=== PATIENT | male | born 1965 | race Caucasian/White ===

== ENCOUNTER 2023-07-31 17:23 | Observation (INO) ==
[2023-07-31] MEDS: SODIUM CHLORIDE 0.9% 1,000 ML IV STA (18:25)
[2023-07-31 18:37] LABS: Appearance Urine Clear (Clear); Bilirubin Urine Negative (Negative); Blood Urine Negative (Negative); Color Urine Yellow; Glucose Urine UA Negative (Negative); Ketones Urine Negative (Negative); Leukocyte Esterase Urine Negative (Negative); Nitrite Urine Negative (Negative); Protein Urine Negative (Negative); Urobilinogen Urine Negative (Negative)
[2023-07-31 18:37] LABS: Basophils # (auto) 0.04 K/uL (0.00-0.20); Basophils % (auto) 0.6 %; Eosinophils # (auto) 0.31 K/uL (0.00-0.50); Eosinophils % (auto) 4.9 %; Hematocrit (blood only) 46.7 % (42.0-52.0); Immature Granulocytes # (auto) 0.04 K/uL (0.01-0.20); Immature Granulocytes % (auto) 0.6 %; Lymphocytes % (auto) 18.8 %; Mean Corpuscular Hemoglobin 29.6 pg (25.0-34.0); Mean Corpuscular Hgb Conc 34.3 g/dL (32.0-36.0); Mean Corpuscular Volume 86.5 fL (80.0-100.0); Monocytes # (auto) 0.73 K/uL (0.11-0.59); Monocytes % (auto) 11.4 %; Neutrophils # (auto) 4.06 K/uL (1.40-6.50); Neutrophils % (auto) 63.7 %; Platelet Count 259 K/uL (130-400); RDW Coefficient of Variation 13.4 % (11.5-14.5); RDW Standard Deviation 42.1 fL (36.4-46.3); White Blood Count 6.38 K/ul (4.8-10.8)
[2023-07-31 18:47] LABS: Albumin Globulin Ratio 1.2 (0.9-2); Albumin Level 4.4 gm/dl (3.4-5.0); BUN Creatinine Ratio 10.8 (10-20); Bilirubin,Total 0.9 mg/dl (0.2-1.0); Calcium 9.4 mg/dl (8.6-10.3); Creatinine Clr Calc Pharmacy 127.6 ml/min; Est GFR (African American) 117.8 ml/min; Est GFR (Non-African American) 101.7 ml/min; Globulin 3.8 gm/dl (2.5-4.0); Potassium 3.6 mmol/L (3.5-5.1); Total Protein 8.2 gm/dl (6.0-8.3)
--- NOTE | 2023-07-31 18:47 | Emergency Department Note ---
Impression & Plan Acute upper abdominal pain ED Provider Note NAME: ADRIAN CASTRO Jr AGE: 58 SEX: Male INFORMANT: Patient ED PROVIDER(S): Jaxon Key MD CHIEF COMPLAINT: Abdominal pain PLAN: Disposition: Admitted Outpatient prescription management: none Referral: None MEDICAL DECISION MAKING: Patient presented with acute abdominal pain going on this week. Pain was in the upper aspect. He had an IV established. Blood work and urinalysis ordered. CT imaging ordered to further elucidate the cause of his pain and tenderness. Patient declined analgesia. Patient underwent CT imaging and this was concerning for acute cholecystitis. Discussed case with on-call general surgery, Dr. Otto. She will admit the patient. Discussed initiation of IV Mefoxin she is in agreement. First dose ordered in the emergency department. Patient was informed. He is in agreement with the plan. Patient was admitted for further management. Care/management discussed with: none Level of care consideration(s): After review of the information above and other included data, I feel the patient requires escalation of care to admission Triage Nursing notes: reviewed and agree them. Vital Signs: reviewed and remarkable for no significant abnormalities Additional History obtained from: none Chronic Medical/Social Conditions affecting care: none Prior/ Outside/ External records reviewed: none Differential Diagnosis: constipation, diverticulitis, UTI, obstruction, mesenteric ischemia, aortic pathology, inflammatory bowel disease, renal colic, PUD, pancreatitis, biliary pathology, hernia, volvulus, Appendicitis, testicular torsion, infections, as well as other pathologies. Diagnostics, independently interpreted by me: ECG: none Cardiac Monitoring: none Medical decision rules: none Imaging studies: None. I refer you to the EMR for further details. HPI: 58 year old Male arrives for evaluation of upper abdominal pain. This started at the beginning of the week and is persisting with some days better than others. The patient also notes the following associated symptoms, feelings of constipation that he treated with laxatives. The patient has taken no other medication for relieving factors. Current pain is rated as 5/10. Patient states that he felt like he might have been constipated. He tried Dulcolax as well as MiraLAX after seeing his primary office 3 days ago. He has had some intermittent small bowel movements but they did not change his upper abdominal discomfort. Pain seem to migrate towards the right upper quadrant earlier this morning and persisted throughout the day. Patient notes a chronic cough for about 20 years but denies any other acute respiratory symptoms. Pt denies LOC, headache, fevers, chills, diaphoresis, visual changes, neck pain, chest pain, breathing difficulties, nausea, vomiting, back pain, melena, hematochezia, urinary symptoms, numbness, weakness, lymphadenopathy, rash, or other complaints. . PAST MEDICAL HISTORY: See Below, hyperlipidemia, chronic cough PAST SURGICAL HISTORY: See Below, SOCIAL HISTORY: See Below, employed HOME MEDICATIONS: See Below ALLERGIES: See Below VITALS: See Below PHYSICAL EXAMINATION: GENERAL: Awake, alert, well-appearing, in no distress HENT: Normocephalic, atraumatic. Oropharynx unremarkable. EYES: Normal conjunctiva. Sclera non-icteric. NECK: Inspection normal. Non-tender. Supple. No nuchal rigidity. FROM. No masses. RESPIRATORY: Clear to auscultation. No wheezes. No rales. Normal respiratory effort. CARDIAC: Normal rate. Normal rhythm. No murmurs. No rubs. Extremities warm and well perfused. Pulses equal. No JVD. GI: Soft, mild-distended. Epigastric and right upper quad tenderness to palpation. No rebound or guarding. No masses. RECTAL: Deferred. MUSCULOSKELETAL: Atraumatic. Chest examination reveals no tenderness. The back is symmetrical on inspection without obvious abnormality. There is no CVA tenderness to palpation. No joint edema. LOWER EXTREMITIES: Calves are equal size bilaterally and non-tender. No edema. No discoloration. NEURO: Normal sensorium. No sensory or motor deficits noted. SKIN: No rash or jaundice noted. PROCEDURES: none CRITICAL CARE: none OBSERVATION NOTE: none Past Med/Surg History Medical History (Updated 07/31/23 @ 18:46 by Jaxon Key MD) Multiple pulmonary nodules Asthma Hyperlipidemia Upper respiratory infection Social History Smoking Status: Never smoker Second Hand Exposure: No; Do You Dip or Chew Tobacco: No; Hx Alcohol Use: No Hx Substance Use: No Preferred Language: Czech Communication Ability: Effective Hearing Ability: Normal Frame Opener Required: No Beliefs That Will Affect Care: None marital status: Current Living Situation: Spouse Current Living Situation Comment: 1 daughter current occupational status: employed current occupation: Work [employer] at [employer] How many Children do You have: 5 Other Information That Helps Us Care for You: No Feels Safe at Home: Yes Safety Concerns: Feels Safe At This Time Childhood Exposure to Second-Hand Smoke: Yes Diet: regular caffeine: Yes Dental Care, Regularly: No Physical Activity Frequency: 3-4 Times per Week Physical Activity Frequency Comment: Walking Seatbelt Use: always Sunscreen Use: Yes Gender Identity: Male Assistive Devices: Glasses Allergies Allergies Allergy/AdvReac Type Severity Reaction Status Date / Time No Known Drug Allergies AdvReac 0 Verified 07/31/23 20:49 Home Meds Home Medications Medication Instructions Recorded Confirmed acetaminophen 500 mg tablet 1,000 mg PO Q6H PRN Pain 07/31/23 07/31/23 (Tylenol Extra Strength) lactulose 10 gram/15 mL oral 10 g PO DIRECTED 07/31/23 07/31/23 solution polyethylene glycol 3350 17 gram 17 g PO DIRECTED 07/31/23 07/31/23 oral powder packet (Miralax) Previous Rx's Medication Instructions Recorded benzonatate 100 mg capsule 100 mg PO TID PRN cough #20 caps 08/09/21 rosuvastatin 10 mg tablet 10 mg PO DAILY #90 tabs 06/29/23 fluticasone propionate 50 1 spray intranasal DAILY PRN nasal 07/20/23 mcg/actuation nasal congestion #16 grams spray,suspension (Flonase Allergy Relief) levocetirizine 5 mg tablet 5 mg PO DAILY PRN allergy symptoms 07/20/23 #30 tabs Results & Data (ED) Vital Signs Vital Signs - 24 hr 07/31/23 17:31 07/31/23 19:18 Temperature 36.5 C Temperature Source Temporal Artery Scan Pulse Rate 89 Pulse Rate [Apical] 75 Pulse Rhythm [Apical] Regular Pulse Strength [Apical] Normal Respiratory Rate 19 18 Respiratory Effort / Characteristics Non-Labored Spontaneous Respiratory Depth Normal Blood Pressure 165/108 H Blood Pressure [Right Arm] 152/74 H Blood Pressure Mean 127 Blood Pressure Mean [Right Arm] 100 Pulse Oximetry 96 99 Oxygen Delivery Method Room Air Room Air Sepsis Recent Fever Within 48 Hours No Sepsis New/Unexplained Change in Mental Status N/A Sepsis Action Taken by Nursing No Action Required Laboratory Data 07/31/23 18:15 07/31/23 18:15 Lab Results 07/31/23 07/31/23 Range/Units 18:15 18:26 WBC 6.38 (4.8-10.8) K/ul RBC 5.40 (4.70-6.10) M/uL Hgb 16.0 (14.0-18.0) g/dl Hct 46.7 (42.0-52.0) % MCV 86.5 (80.0-100.0) fL MCH 29.6 (25.0-34.0) pg MCHC 34.3 (32.0-36.0) g/dL RDW Std Deviation 42.1 (36.4-46.3) fL RDW Coeff of Jorge 13.4 (11.5-14.5) % Plt Count 259 (130-400) K/uL MPV 10.0 (9.4-12.4) fL Immature Gran % (Auto) 0.6 % Neut % (Auto) 63.7 % Lymph % (Auto) 18.8 % [place] % (Auto) 11.4 % Eos % (Auto) 4.9 % Baso % (Auto) 0.6 % Neut # (Auto) 4.06 (1.40-6.50) K/uL Lymph # (Auto) 1.20 (1.20-3.40) K/uL [place] # (Auto) 0.73 H (0.11-0.59) K/uL Eos # (Auto) 0.31 (0.00-0.50) K/uL Baso # (Auto) 0.04 (0.00-0.20) K/uL Immature Gran # (Auto) 0.04 (0.01-0.20) K/uL Sodium 137 (136-145) mmol/L Potassium 3.6 (3.5-5.1) mmol/L Chloride 102 (98-107) mmol/L Carbon Dioxide 26 (21-32) mmol/L Anion Gap 9 (3-11) BUN 8 (6-23) mg/dl Creatinine 0.74 (0.6-1.4) mg/dl Est Cr Clr Drug Dosing 127.6 ml/min Est GFR ( Amer) 117.8 ml/min Est GFR (Non-Af Amer) 101.7 ml/min BUN/Creatinine Ratio 10.8 (10-20) Glucose 105 H (70-99(Fasting)) mg/dl Calcium 9.4 (8.6-10.3) mg/dl Total Bilirubin 0.9 (0.2-1.0) mg/dl AST 30 (13-39) U/L ALT 39 (7-52) U/L Alkaline Phosphatase 90 (34-104) U/L Total Protein 8.2 (6.0-8.3) gm/dl Albumin 4.4 (3.4-5.0) gm/dl Globulin 3.8 (2.5-4.0) gm/dl Albumin/Globulin Ratio 1.2 (0.9-2) Lipase 25 (11-82) U/L TSH 1.199 (0.300-4.500) uIu/ml Urine Color Yellow Urine Appearance Clear (Clear) Urine pH 6.0 (4.5-7.5) Ur Specific [place] 1.010 (1.000-1.030) Urine Protein Negative (Negative) Urine Glucose (UA) Negative (Negative) Urine Ketones Negative (Negative) Urine Blood Negative (Negative) Urine Nitrite Negative (Negative) Urine Bilirubin Negative (Negative) Urine Urobilinogen Negative (Negative) Ur Leukocyte Esterase Negative (Negative) Administered Medications Lactated Ringer's (Lr) 1,000 mls @ 100 mls/hr IV .Q10H [facility]WAKU Stop: 08/30/23 21:35 Last Admin: 07/31/23 22:27 Dose: 100 mls/hr Documented By: JERONIMO Discontinued Medications Sodium Chloride (Nss) 1,000 mls @ 999 mls/hr IV .Q1H1M STA Stop: 07/31/23 19:01 Last Infusion: 07/31/23 19:52 Dose: Infused Documented By: [facility] Admin: 07/31/23 18:25 Dose: 999 mls/hr Documented By: NKIO Cefoxitin Sodium (Mefoxin) 2,000 mg in 60 mls @ 100 mls/hr IV NOW STA Stop: 07/31/23 20:37 Last Infusion: 07/31/23 21:05 Dose: Infused Documented By: [facility] Admin: 07/31/23 20:32 Dose: 100 mls/hr Documented By: TERESA Ioversol (Optiray 320 500ml) 78 ml IV ONCE ONE Stop: 07/31/23 19:12 Last Admin: 07/31/23 19:12 Dose: 78 ml Documented By: CORDELIA Imaging Data Radiologist's Impression: Abdomen/Pelvis CT 07/31/23 18:[address] WITH IV CONTRAST CT DOSE: 1444.5 mGy.cm HISTORY: Acute upper abdominal pain upper abdominal pain TECHNIQUE: Multiaxial CT images of the abdomen and pelvis were performed following the IV administration of 87 cc of Optiray, A dose lowering technique was utilized adhering to the principles of ALARA. COMPARISON STUDY: Chest CT of same day FINDINGS: Calcified granulomata in the right lower lobe with calcified right- sided hilar lymph nodes. Linear bibasilar densities suggest atelectasis versus scarring. No free air. Unremarkable spleen, pancreas and adrenal glands. Cholelithiasis with moderate gallbladder wall thickening and pericholecystic stranding. No biliary ductal dilation. Hepatic steatosis with mild hepatomegaly. No hepatic mass identified patency of the hepatic and portal veins. Unremarkable kidneys. 2.1 cm cyst of the inferior pole right kidney. Prostatomegaly. Urinary bladder wall thickening with partial distention. Atherosclerosis of the aorta. 1.5 cm nonspecific precaval lymph node. No bowel obstruction or bowel wall thickening. There is mild gaseous distention of the large bowel. Normal appendix. Unremarkable soft tissues. No acute fracture.. IMPRESSION: 1. Cholelithiasis with acute cholecystitis. 2. No bowel obstruction or bowel wall thickening. 3. Hepatomegaly with hepatic steatosis. 4. Normal appendix. ACT 112: Negative or not required by law. The above report was generated using voice recognition software. It may contain grammatical, syntax or spelling errors. Electronically signed by: Lobo Persaud M.D. 07/31/2023 7:42 PM Discharge Plan Visit Data Chief Complaint: Constipation Stated Complaint: CONSTIPATION, ABDOMINAL PAIN ED Provider: Jaxon Key Discharge Problem: Acute upper abdominal pain Patient Disposition: Admitted As Inpatient Discharge Instructions Interventions: ED Discharge Assessment Last Done: 07/31/23 21:05
[2023-07-31] MEDS: OPTIRAY 320 500ml IV ONE (19:12)
[2023-07-31 19:29] LABS: Thyroid Stimulating Hormone 1.199 uIu/ml (0.300-4.500)
--- NOTE | 2023-07-31 19:44 | CT Scan Report ---
ABDOMEN AND PELVIS CT WITH IV CONTRAST CT DOSE: 1444.5 mGy.cm HISTORY: Acute upper abdominal pain upper abdominal pain TECHNIQUE: Multiaxial CT images of the abdomen and pelvis were performed following the IV administrat ion of 87 cc of Optiray, A dose lowering technique was utilized adhering to the principles of ALARA. COMPARISON STUDY: Chest CT of same day FINDINGS: Calcified granulomata in the right lower lobe with calcified right-sided hilar lymph nodes. Linear bibasilar densities suggest atelectasis versus scarring. No free air. Unremarkable spleen, pa ncreas and adrenal glands. Cholelithiasis with moderate gallbladder wall thickening and pericholecyst ic stranding. No biliary ductal dilation. Hepatic steatosis with mild hepatomegaly. No hepatic mass i dentified patency of the hepatic and portal veins. Unremarkable kidneys. 2.1 cm cyst of the inferior pole right kidney. Prostatomegaly. Urinary bladder wall thickening with partial distention. Atherosclerosis of the aorta. 1.5 cm nonspecific precaval ly mph node. No bowel obstruction or bowel wall thickening. There is mild gaseous distention of the larg e bowel. Normal appendix. Unremarkable soft tissues. No acute fracture.. IMPRESSION: 1. Cholelithiasis with acute cholecystitis. 2. No bowel obstruction or bowel wall thickening. 3. Hepatomegaly with hepatic steatosis. 4. Normal appendix. ACT 112: Negative or not required by law. The above report was generated using voice recognition software. It may contain grammatical, syntax o r spelling errors. Electronically signed by: Lobo Persaud M.D. 07/31/2023 7:42 PM
[2023-07-31] MEDS: cefOXitin 2,000 MG/60 ML BAG IV STA (20:32)
[2023-07-31] MEDS ORDERED: oxyCODONE/ACETAMINOPHEN 5mg/325mg TAB PO PRN ×2 (21:36)
[2023-07-31] MEDS ORDERED: ONDANSETRON INJ 2 MG/ML 2 ML VIAL IV PRN (21:36)
[2023-07-31] MEDS ORDERED: KETOROLAC TROMETHAMINE 15 MG/ML VIAL IV PRN (21:36)
[2023-07-31] MEDS ORDERED: MoRPHine SULFATE 2 MG/ML CARP IV PRN (21:36)
[2023-07-31] MEDS ORDERED: MoRPHine SULFATE 4 MG/ML 1 ML CARP\\VIAL IV PRN (21:36)
[2023-07-31] MEDS: LACTATED RINGER'S 1,000 ML IV SCH (22:27)
[2023-08-01] MEDS: cefOXitin 1,000 MG in DEXTROSE 5 % MINI-B 50 ML IV SCH (01:51)
--- NOTE | 2023-08-01 07:18 | Anesthesiology Consultation ---
Date of Service August 01, 2023 Assessment & Plan Chart Review Chart Review: entry analyst initiated History Surgery Operation Date: 08/01/23 12:00 Proposed Procedures p Laparoscopic Cholecystectomy - Kirstin Otto MD Height/Weight Height: 5 ft 8 in Weight: 105.1 kg Allergies Allergy/AdvReac Type Severity Reaction Status Date / Time No Known Drug Allergies AdvReac 0 Verified 07/31/23 20:49 Medications Home Medications Medication Instructions Recorded Confirmed Last Taken benzonatate 100 mg capsule 100 mg PO TID PRN cough #20 caps 08/09/21 07/31/23 Unknown rosuvastatin 10 mg tablet 10 mg PO DAILY #90 tabs 06/29/23 07/31/23 Unknown fluticasone propionate 50 1 spray intranasal DAILY PRN nasal 07/20/23 07/31/23 Unknown mcg/actuation nasal congestion #16 grams spray,suspension (Flonase Allergy Relief) levocetirizine 5 mg tablet 5 mg PO DAILY PRN allergy symptoms 07/20/23 07/31/23 Unknown #30 tabs acetaminophen 500 mg tablet 1,000 mg PO Q6H PRN Pain 07/31/23 07/31/23 Unknown (Tylenol Extra Strength) lactulose 10 gram/15 mL oral 10 g PO DIRECTED 07/31/23 07/31/23 Unknown solution polyethylene glycol 3350 17 gram 17 g PO DIRECTED 07/31/23 07/31/23 Unknown oral powder packet (Miralax) Active Medications Generic Name Dose Route Start Last Admin Trade Name Freq PRN Reason Stop Dose Admin Lactated Ringer's 1,000 mls @ 100 mls/hr 07/31/23 21:36 07/31/23 22:27 Lr IV 08/30/23 21:35 100 mls/hr .Q10H KWAKU Administration Cefoxitin Sodium 1,000 mg/ 50 mls @ 100 mls/hr 08/01/23 02:00 08/01/23 02:45 Dextrose IV 08/11/23 01:59 Infused Q6H KWAKU Infusion Protocol Past Medical History Medical History Multiple pulmonary nodules Asthma Hyperlipidemia Upper respiratory infection Social History Smoking Status: Never smoker Do You Dip or Chew Tobacco: No Hx Alcohol Use: No Hx Substance Use: No substance use type: does not use Physical Exam Vital Signs Last Vital Signs Temp 98.3 F 07/31/23 21:18 Pulse 76 07/31/23 21:18 Resp 18 07/31/23 21:18 BP 129/86 07/31/23 21:18 Pulse Ox 96 07/31/23 21:18 O2 Del Method Room Air 07/31/23 21:18 Testing Laboratory Results 07/31/23 18:15 07/31/23 18:15 Urine Color Yellow 07/31/23 18:26 Urine Appearance Clear (Clear) 07/31/23 18:26 Urine pH 6.0 (4.5-7.5) 07/31/23 18:26 Ur Specific [place] 1.010 (1.000-1.030) 07/31/23 18:26 Urine Protein Negative (Negative) 07/31/23 18:26 Urine Glucose (UA) Negative (Negative) 07/31/23 18:26 Urine Ketones Negative (Negative) 07/31/23 18:26 Urine Nitrite Negative (Negative) 07/31/23 18:26 Ur Leukocyte Esterase Negative (Negative) 07/31/23 18:26 Chest X-Ray Date: 06/24/23 IMPRESSION: 1. No consolidation to suggest pneumonia. 2. 1.4 cm nodular opacity within the left lower lung. A follow-up chest CT is recommended to exclude a pulmonary nodule. A few clustered small nodules within the right lower lung can also be assessed. 3. Mild cardiomegaly. No evidence for pulmonary edema.
--- NOTE | 2023-08-01 09:08 | History & Physical Report ---
Date of Service August 01, 2023 Assessment & Plan (1) Acute cholecystitis due to biliary calculus: Plan: 58-year-old man with acute cholecystitis. We discussed laparoscopic cholecystectomy with risks of bleeding, infection, conversion to open, bile leak or retained stone requiring ERCP, intolerance to certain foods postoperatively, postoperative diarrhea. He is interested in proceeding. Consent was signed. He will be maintained n.p.o. and is on IV antibiotics. He will be taken to the operating room today. Expected 1 to 2-week recovery period was discussed. We also discussed the possibility of drain placement and need for prolonged hospital stay depending on findings intraoperatively. Admission and Anticipated Discharge Date Admission Date: July 31, 2023 History of Present Illness Chief Complaint: abdominal pain Primary Care Provider: AMANDA Berry 58-year-old man who comes to the hospital complaining of right-sided abdominal pain. His symptoms actually began in the last few weeks where he felt that he was significantly constipated. He was having more generalized pain at that time. He was seen by his primary care doctor and started on laxatives. The constipation did appear to improve. 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 This was sharp and stabbing. It was of severe inte nsity. It did not radiate to his back. He did not have any nausea or vomiting. There were no relieving factors. The pain persisted and when he left work around 7 in the morning he went home. He did not feel well enough to go to another job later that day. As the pain was increasing in intensity, he was brought to the hospital for evaluation. His symptoms have somewhat improved now. He denies any intolerance to fatty foods in the past but did note that he had chicken pot pie and [employer] peanut butter cups while at work. He had a similar episode of pain back in January of last year for following which he did not seek intervention as the pain resolved relatively quickly. He has not had any prior abdominal operations. His past medical history is most notable for chronic cough for 20 years. In addition he had pneumonia before . He was evaluated by a store clerk for both the cough as well as abnormal imaging showing multiple lung nodules. These are felt to be benign. Allergies Allergy/AdvReac Type Severity Reaction Status Date / Time No Known Drug Allergies AdvReac 0 Verified 02/17/24 20:49 Home Medications Medication Instructions Recorded Confirmed Type benzonatate 100 mg capsule 100 mg PO TID PRN cough #20 caps 08/09/21 07/31/23 Rx rosuvastatin 10 mg tablet 10 mg PO DAILY #90 tabs 06/29/23 07/31/23 Rx fluticasone propionate 50 1 spray intranasal DAILY PRN nasal 07/20/23 07/31/23 Rx mcg/actuation nasal congestion #16 grams spray,suspension (Flonase Allergy Relief) levocetirizine 5 mg tablet 5 mg PO DAILY PRN allergy symptoms 07/20/23 07/31/23 Rx #30 tabs acetaminophen 500 mg tablet 1,000 mg PO Q6H PRN Pain 07/31/23 07/31/23 History (Tylenol Extra Strength) lactulose 10 gram/15 mL oral 10 g PO DIRECTED 07/31/23 07/31/23 History solution polyethylene glycol 3350 17 gram 17 g PO DIRECTED 07/31/23 07/31/23 History oral powder packet (Miralax) Past Med/Surg History Medical History Multiple pulmonary nodules Asthma Hyperlipidemia Upper respiratory infection Social History Smoking Status: Never smoker Second Hand Exposure: No; Do You Dip or Chew Tobacco: No; Hx Alcohol Use: No Hx Substance Use: No Preferred Language: Yoruba Communication Ability: Effective Hearing Ability: Normal 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 Beliefs That Will Affect Care: None marital status: Current Living Situation: Spouse Current Living Situation Comment: 1 daughter current occupational status: employed current occupation: Work [employer] at [employer] How many Children do You have: 5 Other Information That Helps Us Care for You: No Feels Safe at Home: Yes Safety Concerns: Feels Safe At This Time Childhood Exposure to Second-Hand Smoke: Yes Diet: regular caffeine: Yes Dental Care, Regularly: No Physical Activity Frequency: 3-4 Times per Week Physical Activity Frequency Comment: Walking Seatbelt Use: always Sunscreen Use: Yes Gender Identity: Male Assistive Devices: Glasses Review of Systems Review of Systems: All systems reviewed & are unremarkable except as noted in HPI & below Respiratory: + cough (chronic) Physical Exam Constitutional: WD/WN, vitals as above Eyes: PERRL, conjunctivae normal, anicteric sclerae ENMT: Ears: no hearing impairment Neck: normal visual inspection and trachea midline Respiratory: normal respiratory effort, lungs clear to auscultation Cardiovascular: RRR, no murmur, no edema Gastrointestinal (Abdomen): Inspection/Auscultation: abdomen normal to inspection and normal bowel sounds; abdomen not distended Percussion/Palpation: + abdomen tender (deep in right upper quadrant) and abdomen soft; no guarding Neurologic: awake; no focal motor deficits Psychiatric: A+Ox3, euthymic affect Results & Data Results & Data Vital Signs (Past 12 Hours) Vital Signs Temp Pulse Resp BP Pulse Ox O2 Del Method 08/01/23 07:16 36.9 C 79 16 136/79 95 Room Air 07/31/23 21:18 Room Air 07/31/23 21:18 36.8 C 76 18 129/86 96 Room Air Laboratory Results 07/31/23 07/31/23 Range/Units 18:26 18:15 WBC 6.38 (4.8-10.8) K/ul RBC 5.40 (4.70-6.10) M/uL Hgb 16.0 (14.0-18.0) g/dl Hct 46.7 (42.0-52.0) % MCV 86.5 (80.0-100.0) fL MCH 29.6 (25.0-34.0) pg MCHC 34.3 (32.0-36.0) g/dL RDW Std Deviation 42.1 (36.4-46.3) fL RDW Coeff of Jorge 13.4 (11.5-14.5) % Plt Count 259 (130-400) K/uL MPV 10.0 (9.4-12.4) fL Immature Gran % (Auto) 0.6 % Neut % (Auto) 63.7 % Lymph % (Auto) 18.8 % [place] % (Auto) 11.4 % Eos % (Auto) 4.9 % Baso % (Auto) 0.6 % Neut # (Auto) 4.06 (1.40-6.50) K/uL Lymph # (Auto) 1.20 (1.20-3.40) K/uL [place] # (Auto) 0.73 H (0.11-0.59) K/uL Eos # (Auto) 0.31 (0.00-0.50) K/uL Baso # (Auto) 0.04 (0.00-0.20) K/uL Immature Gran # (Auto) 0.04 (0.01-0.20) K/uL Sodium 137 (136-145) mmol/L Potassium 3.6 (3.5-5.1) mmol/L Chloride 102 (98-107) mmol/L Carbon Dioxide 26 (21-32) mmol/L Anion Gap 9 (3-11) BUN 8 (6-23) mg/dl Creatinine 0.74 (0.6-1.4) mg/dl Est Cr Clr Drug Dosing 127.6 ml/min Est GFR ( Amer) 117.8 ml/min Est GFR (Non-Af Amer) 101.7 ml/min BUN/Creatinine Ratio 10.8 (10-20) Glucose 105 H (70-99(Fasting)) mg/dl Calcium 9.4 (8.6-10.3) mg/dl Total Bilirubin 0.9 (0.2-1.0) mg/dl AST 30 (13-39) U/L ALT 39 (7-52) U/L Alkaline Phosphatase 90 (34-104) U/L Total Protein 8.2 (6.0-8.3) gm/dl Albumin 4.4 (3.4-5.0) gm/dl Globulin 3.8 (2.5-4.0) gm/dl Albumin/Globulin Ratio 1.2 (0.9-2) Lipase 25 (11-82) U/L TSH 1.199 (0.300-4.500) uIu/ml Urine Color Yellow Urine Appearance Clear (Clear) Urine pH 6.0 (4.5-7.5) Ur Specific [place] 1.010 (1.000-1.030) Urine Protein Negative (Negative) Urine Glucose (UA) Negative (Negative) Urine Ketones Negative (Negative) Urine Blood Negative (Negative) Urine Nitrite Negative (Negative) Urine Bilirubin Negative (Negative) Urine Urobilinogen Negative (Negative) Ur Leukocyte Esterase Negative (Negative) Diagnostic Findings ABDOMEN AND PELVIS CT WITH IV CONTRAST CT DOSE: 1444.5 mGy.cm HISTORY: Acute upper abdominal pain upper abdominal pain TECHNIQUE: Multiaxial CT images of the abdomen and pelvis were performed following the IV administration of 87 cc of Optiray, A dose lowering technique was utilized adhering to the principles of ALARA. COMPARISON STUDY: Chest CT of same day FINDINGS: Calcified granulomata in the right lower lobe with calcified right- sided hilar lymph nodes. Linear bibasilar densities suggest atelectasis versus scarring. No free air. Unremarkable spleen, pancreas and adrenal glands. Cholelithiasis with moderate gallbladder wall thickening and pericholecystic stranding. No biliary ductal dilation. Hepatic steatosis with mild hepatomegaly. No hepatic mass identified patency of the hepatic and portal veins. Unremarkable kidneys. 2.1 cm cyst of the inferior pole right kidney. Prostatomegaly. Urinary bladder wall thickening with partial distention. Atherosclerosis of the aorta. 1.5 cm nonspecific precaval lymph node. No bowel obstruction or bowel wall thickening. There is mild gaseous distention of the large bowel. Normal appendix. Unremarkable soft tissues. No acute fracture.. IMPRESSION: 1. Cholelithiasis with acute cholecystitis. 2. No bowel obstruction or bowel wall thickening. 3. Hepatomegaly with hepatic steatosis. 4. Normal appendix. Code Status & VTE Plan VTE Prophylaxis Plan VTE Prophylaxis will be ordered: Yes
[2023-08-01] MEDS ORDERED: MIDAZOLAM HCL 1 MG/ML 2ML VIAL ONE (10:55)
[2023-08-01] MEDS ORDERED: fentaNYL citrate PF 100 MCG/2 ML VIAL ONE ×2 (10:55→11:20)
[2023-08-01] MEDS ORDERED: ONDANSETRON INJ 2 MG/ML 2 ML VIAL ONE (10:59)
[2023-08-01] MEDS ORDERED: ROCURONIUM BROMIDE 10 MG/ML 5 ML VIAL IV ONE ×2 (10:59→12:48)
[2023-08-01] MEDS ORDERED: LIDOCAINE 2% 2 ML VIAL/AMP(20MG/ML) INFIL ONE (10:59)
[2023-08-01] MEDS ORDERED: DEXAMETHASONE SOD INJ 4 MG/ML VIAL ONE (10:59)
[2023-08-01] MEDS ORDERED: PROPOFOL IV EMULSION 10 MG/ML 20 ML VIAL IV ONE (10:59)
[2023-08-01] MEDS ORDERED: ATROPINE SULFATE 0.1 MG/ML 10ML SYR IV PRN (11:06)
[2023-08-01] MEDS ORDERED: fentaNYL citrate PF 100 MCG/2 ML VIAL IV PRN (11:06)
[2023-08-01] MEDS ORDERED: ePHEDrine sulfate 50 MG/ML AMP IV PRN (11:06)
[2023-08-01] MEDS ORDERED: ONDANSETRON INJ 2 MG/ML 2 ML VIAL IV PRN (11:06)
[2023-08-01] MEDS: cefOXitin SOD 2,000 MG VIAL IV ONE (11:24)
[2023-08-01] MEDS: BUPIVACAINE 0.5 % 5 MG/1 ML MPF 30ML VIAL ONE (11:33)
[2023-08-01] MEDS ORDERED: NEOSTIGMINE METHYLSULFATE 1 MG/ML 10ML VIAL ONE (11:56)
[2023-08-01] MEDS ORDERED: GLYCOPYRROLATE 0.2 MG/ML VIAL ONE (11:56)
[2023-08-01] MEDS ORDERED: KETOROLAC 30 MG/ML VIAL ONE (11:56)
--- NOTE | 2023-08-01 13:30 | Operative Report ---
Post Operative Report Pre & Post Diagnosis Operation Date: 08/01/23 12:00 Pre-Op Diagnosis: Acute cholecystitis due to biliary calculus Post-Op Diagnosis: Acute cholecystitis due to biliary calculus I identified the patient and participated in the time-out.: Yes Procedure Operation Date: 08/01/23 12:00 Actual Procedures p Laparoscopic Cholecystectomy(Not Applicable) - Kirstin Otto MD Surgeon Kirstin Otto MD Hand Dry Cleaner none Estimated Blood Loss 10 Findings Consistent with Post-Op Diagnosis (severe acute cholecystitis) severe acute cholecystitis with large over 5 cm stone impacted Fluids 700 cc IVF Specimens gallbladder and contents Drains none Anesthesia Type General Complications none Disposition Accompanied Patient To Recovery: No Disposition: Recovery Room Indications 58-year-old man who presented with clinical and imaging findings consistent with acute cholecystitis. He was consented for laparoscopic cholecystectomy. Description of Procedure The patient received Mefoxin preoperatively. He had placement of sequential compression devices and he was positioned with his arms out. He underwent induction of general endotracheal anesthesia. His abdomen was sterilely prepped and draped. He was placed in Trendelenburg. A supraumbilical incision was made and a Veress needle placed into the peritoneal cavity. Pneumoperitoneum was established. Initial pressure was 2 mmHg and this was taken up to 15 mmHg. A 5 mm trocar was placed with the camera through the trocar. The patient was switched to reverse Trendelenburg and airplane to the left. 3 additional trocars were placed under direct vision. An 11 mm was in the epigastrium and 2 5 mm were placed on the right side of the abdomen. Initial inspection revealed adhesions to the gallbladder of the bowel and omentum. This was all consistent with severe inflammatory change. These were peeled away. The gallbladder was extremely tense and could not be grabbed. It was decompressed with a needle yielding a white bile. There was a large almost 5 cm stone impacted. The wall was extremely thickened. Dissection was begun at the triangle of [place] and the cystic duct and cystic artery identified. Critical views were seen anteriorly and posteriorly. Both structures were doubly clipped on the remaining side singly clipped on the gallbladder side and divided. The gallbladder was then dissected off the liver bed. This was a very tedious dissection with significant inflammation and oozing. At one point the gallbladder had been entered and the large stone was visible. This was extracted to allow for better dissection of the gallbladder off the fossa. The gallbladder was ultimately removed and placed in an Endobag. This was removed through the epigastric incision. The large stone was placed in the second Endobag. This was also removed through the epigastric incision. The abdomen was irrigated until it was hemostatic. There was no evidence of any bleeding noted. The fascia of the epigastric incision had been extended to allow for both gallbladder and stone removal. The trocars were removed. 30 cc of half percent Marcaine was used for local anesthetic. The fascia of the epigastrium was closed with 0 Vicryl stitches placed anteriorly. The skin of all 4 incisions closed with running subcuticular 4-0 Vicryl sutures. Steri-Strips and sterile dressings were applied. He was awakened and taken to recovery in stable condition. I attest to the content of the Intraoperative Record and any orders documented therein. Any exceptions are noted below.
--- NOTE | 2023-08-01 14:01 | Anesthesiology Progress Note ---
Date of Service August 01, 2023 Anesthesia Post Procedure Vital Signs Vital Signs: Temp Pulse Pulse Pulse Resp BP BP 08/01/23 13:50 67 17 142/93 H 08/01/23 13:40 66 15 146/82 H 08/01/23 13:34 97.0 F L 65 14 149/79 H 08/01/23 08:30 08/01/23 07:16 98.4 F 79 16 07/31/23 21:18 07/31/23 21:18 98.3 F 76 18 07/31/23 19:18 75 18 07/31/23 17:31 97.7 F 89 19 165/108 H BP Pulse Ox O2 Del Method O2 Flow Rate 08/01/23 13:50 97 Room Air 08/01/23 13:40 100 Oxymask 7 08/01/23 13:34 100 Oxymask 7 08/01/23 08:30 Room Air 08/01/23 07:16 136/79 95 Room Air 07/31/23 21:18 Room Air 07/31/23 21:18 129/86 96 Room Air 07/31/23 19:18 152/74 H 99 Room Air 07/31/23 17:31 96 Room Air Pain Intensity Abdomen: Pain Intensity: 4 Transfer of Care Handoff Completed per policy Notes Mental Status: alert / awake / arousable and participated in evaluation Patient Amnestic to Procedure: Yes Nausea / Vomiting: adequately controlled Pain: adequately controlled Airway Patency, RR, SpO2: stable & adequate BP & HR: stable & adequate Hydration State: stable & adequate Anesthetic Complications: no major complications apparent and Pt Satisfied with anesthetic care
[2023-08-01] MEDS ORDERED: FLUTICASONE PROPIONATE NA SPR 16 GM BTL NAE PRN (14:13)
[2023-08-01] MEDS ORDERED: BENZONATATE 100 MG CAPSULE PO PRN (14:13)
[2023-08-01] MEDS ORDERED: ACETAMINOPHEN 500 MG TAB PO PRN (14:13)
[2023-08-01] MEDS ORDERED: CETIRIZINE HCL 10 MG TABLET PO PRN (14:19)
[2023-08-01] MEDS: cefOXitin 2,000 MG in DEXTROSE 5 % MINI-B 50 ML IV SCH (14:38)
[2023-08-01] MEDS: POLYETHYLENE (MIRALAX) 17 GM PACK PO SCH (15:11)
[2023-08-01] MEDS: ROSUVASTATIN CALCIUM 10 MG TAB PO SCH (19:16)
[2023-08-02] MEDS: LACTULOSE SYRUP 10 GM/15 ML BTL 960 ML PO SCH (08:27)
--- NOTE | 2023-08-02 14:48 | Discharge Summary ---
Date of Service August 02, 2023 Admission HPI Per Admitting Provider 58-year-old man who comes to the hospital complaining of right-sided abdominal pain. His symptoms actually began in the last few weeks where he felt that he was significantly constipated. He was having more generalized pain at that time. He was seen by his primary care doctor and started on laxatives. The constipation did appear to improve. 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 This was sharp and stabbing. It was of severe intensity. It did not radiate to his back. He did not have any nausea or vomi ting. There were no relieving factors. The pain persisted and when he left work around 7 in the morning he went home. He did not feel well enough to go to another job later that day. As the pain was increasing in intensity, he was brought to the hospital for evaluation. His symptoms have somewhat improved now. He denies any intolerance to fatty foods in the past but did note that he had chicken pot pie and [employer] peanut butter cups while at work. He had a similar episode of pain back in January of last year for following which he did not seek intervention as the pain resolved relatively quickly. He has not had any prior abdominal operations. His past medical history is most notable for chronic cough for 20 years. In addition he had pneumonia before . 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 These are felt to be benign. Admission Exam (Per Admitting) Constitutional WD/WN, vitals as above Eyes PERRL, conjunctivae normal, anicteric sclerae ENMT external ear and nose normal, oropharynx normal Respiratory normal respiratory effort, lungs clear to auscultation Cardiovascular RRR, no murmur, no edema Gastrointestinal (Abdomen) Inspection/Auscultation: abdomen normal to inspection, + abdomen distended and normal bowel sounds Percussion/Palpation: + abdomen tender and abdomen soft Skin no rashes, warm and dry Discharge Data Consultations 07/31/23 20:10 ED Decision to Admit Stat Procedures Performed Operation Date: 08/01/23 12:00 Actual Procedures p Laparoscopic Cholecystectomy(Not Applicable) - Kirstin Otto MD
--- NOTE | 2023-08-02 14:50 | Discharge Summary ---
Date of Service August 02, 2023 Admission HPI Per Admitting Provider 58-year-old man who comes to the hospital complaining of right-sided abdominal pain. His symptoms actually began in the last few weeks where he felt that he was significantly constipated. He was having more generalized pain at that time. He was seen by his primary care doctor and started on laxatives. The constipation did appear to improve. 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 This was sharp and stabbing. It was of severe intensity. It did not radiate to his back. He did not have any nausea or vomi ting. There were no relieving factors. The pain persisted and when he left work around 7 in the morning he went home. He did not feel well enough to go to another job later that day. As the pain was increasing in intensity, he was brought to the hospital for evaluation. His symptoms have somewhat improved now. He denies any intolerance to fatty foods in the past but did note that he had chicken pot pie and [employer] peanut butter cups while at work. He had a similar episode of pain back in January of last year for following which he did not seek intervention as the pain resolved relatively quickly. He has not had any prior abdominal operations. His past medical history is most notable for chronic cough for 20 years. In addition he had pneumonia before . 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 These are felt to be benign. Admission Exam (Per Admitting) Constitutional WD/WN, vitals as above Eyes PERRL, conjunctivae normal, anicteric sclerae ENMT external ear and nose normal, oropharynx normal Respiratory normal respiratory effort, lungs clear to auscultation Cardiovascular RRR, no murmur, no edema Gastrointestinal (Abdomen) Inspection/Auscultation: abdomen normal to inspection and normal bowel sounds; abdomen not distended Percussion/Palpation: + abdomen tender and abdomen soft Skin no rashes, warm and dry Discharge Data Consultations 07/31/23 20:10 ED Decision to Admit Stat Procedures Performed Operation Date: 08/01/23 12:00 Actual Procedures p Laparoscopic Cholecystectomy(Not Applicable) - Kirstin Otto MD Hospital Course (1) Acute cholecystitis due to biliary calculus: Patient was admitted taken to the OR and underwent uncomplicated laparoscopic cholecystectomy. He did well postop with his diet and activity. He will be discharged home on postoperative day #1. Plan Home with follow-up in 2 weeks
== END 2023-08-02 15:01 | disposition home or self-care (01) ==
LOC: 3N 17:23 → ED 17:23 → 3N 21:05